=== PATIENT | female | born 1935 | race Hispanic/Latino ===

== ENCOUNTER 2017-07-26 10:08 | Day surgery (SDC) | payer MEDICARE ==
[2017-07-26 11:16] VITALS: BMI 24.2
[2017-07-26 11:21] LABS: INR 0.99 (0.93-1.08); PARTIAL THROMBOPLASTIN TIME 23.8 Seconds (23.7-30.8)
[2017-07-26 11:41] VITALS: RESP 18; O2SAT 95
[2017-07-26 13:15] VITALS: BP 169/85; PULSE 58; TEMP 98.5
--- NOTE | 2017-07-26 15:19 | US ---
PROCEDURE: Ultrasound guided right thoracentesis. CLINICAL HISTORY: Lymphoma. Recurrent right pleural effusion. Shortness of breath. Needs thoracentesis. PHYSICIAN(S): Diogo Pablo MD. TECHNIQUE: The relative risks and indications of the procedure were explained to the patient and her daughter and consent obtained. The patient was placed in a sitting position on the stretcher and sonography of the right chest performed. This revealed a moderate sized rightpleural effusion. A right posterolateral intercostal approach was selected and the area prepped and draped usual sterile fashion. 1% Xylocaine was used to anesthetize the skin and soft tissues. A 7 [place] thoracentesis catheter was trocared into the right pleural cavity and 2000 ccof clear straw-colored fluid aspirated. No labs were sent IMPRESSION: 1. Ultrasound guided right thoracentesis. 2000 cc of clear, straw-colored fluid were aspirated.
--- NOTE | 2017-07-26 17:21 | RAD ---
HISTORY: Right-sided thoracentesis COMPARISON: No prior. TECHNIQUE: Chest PA and lateral FINDINGS: LUNGS: Lung staley appear slightly overinflated consistent with the emphysema or COPD. . There appears to be a small right lateral basilar pneumothorax. . There appears to be small residual right-sided effusion and mild right basilar atelectasis. The the PLEURA: No significant pleural effusion identified. No pneumothorax apparent. CARDIOVASCULAR: Normal. OSSEOUS STRUCTURES: No significant abnormalities. VISUALIZED UPPER ABDOMEN: Normal. OTHER FINDINGS: None. IMPRESSION: There appears to be a small residual right lateral basilar pneumothorax. Small residual right-sided effusion felt be present. There may also be some mild right basilar atelectasis and or scarring changes. . Dr. Pablo aware of these findings
== END 2017-07-26 13:50 | disposition home or self-care (01) ==
LOC: OPSURG 10:08 → EDSEX 10:08 → OPSURG 13:50
PROVIDERS: ATTEND Radiology Vascular & Interventional Radiology
DX: J90 Pleural effusion, not elsewhere classified (principal); C85.90 Non-Hodgkin lymphoma, unspecified, unspecified site

== ENCOUNTER 2017-08-31 13:38 | Emergency (ER) | payer MEDICARE ==
[2017-08-31 13:41] VITALS: BMI 24.2
--- NOTE | 2017-08-31 14:28 | ED PDOC ---
Arrival/HPI - General Chief Complaint: Shortness Of Breath Time Seen by Provider: 08/31/17 13:52 Historian: Patient, Family - History of Present Illness Narrative History of Present Illness (Text): 08/31/17 14:25 82yo female with PMHx of hypertension, non Hodgkin lymphoma, pleural effusion, lumpectomy present with complaint of dyspnea on exertion. the daughter who was by the bedside states pain have history of fluid in her lung. Was here two weeks ago for same complaint and had thoracocentesis done. States she started having SOB yesterday with mild right foot swelling. Denies chest pain, fever, chills, cough, hemoptysis, nausea, vomiting, any other complaint. Past Medical History - Provider Review Nursing Documentation Reviewed: Yes - Infectious Disease Hx of Infectious Diseases: None - Reproductive Menopause: Yes - Cardiac Hx Hypertension: Yes - Pulmonary Hx Respiratory Disorders: No Other/Comment: hx- fluid in lungs - Neurological Hx Neurological Disorder: No - HEENT Hx HEENT Disorder: No - Renal Hx Renal Disorder: No - Endocrine/Metabolic Hx Endocrine Disorders: No - Hematological/Oncological Hx Blood Transfusions: No Other/Comment: non-hodgkin lymphoma - Integumentary Hx Dermatological Disorder: No - Musculoskeletal/Rheumatological Hx Musculoskeletal Disorders: No - Gastrointestinal Hx Gastrointestinal Disorders: No - Genitourinary/Gynecological Hx Genitourinary Disorders: No - Psychiatric Hx Psychophysiologic Disorder: No Hx Substance Use: No - Surgical History Hx Appendectomy: Yes Other/Comment: lumpectomy right breast, removal lymph node to neck - Anesthesia Hx Anesthesia Reactions: No Hx Malignant Hyperthermia: No Family/Social History - Physician Review Nursing Documentation Reviewed: Yes Family/Social History: Unknown Family HX Smoking Status: Never Smoked Hx Alcohol Use: No Hx Substance Use: No Allergies/Home Meds Allergies/Adverse Reactions: Allergies Penicillins Allergy (Verified 08/31/17 13:56) shaking Home Medications: Home Meds Medication Instructions Recorded Confirmed Ascorbic Acid [Vitamin C 500 mg 500 mg PO DAILY 07/26/17 08/31/17 Tab] Aspirin [Adult Low Dose Aspirin EC] 81 mg PO DAILY 07/26/17 08/31/17 Fluticasone/Vilanterol [Breo 1 inh INH DAILY 07/26/17 08/31/17 Ellipta 100-25 Mcg INH] Metoprolol Tartrate [Lopressor] 50 mg PO DAILY 07/26/17 08/31/17 [place]-3 Fatty Acids/Fish Oil [Fish 1 cap PO DAILY 07/26/17 08/31/17 Oil 1,000 mg Capsule] Rosuvastatin Calcium [Crestor] 5 mg PO DAILY 07/26/17 08/31/17 Zolpidem [Ambien] 5 mg PO HS 07/26/17 08/31/17 Thiamine [Vitamin B-1] 100 mg PO DAILY 08/31/17 08/31/17 Review of Systems - Physician Review All systems were reviewed & negative as marked: Yes - Review of Systems Constitutional: Normal Eyes: Normal ENT: Normal Respiratory: SOB. absent: Cough, Sputum, Wheezing Cardiovascular: Normal Gastrointestinal: Normal Genitourinary Female: Normal Musculoskeletal: Normal Skin: Normal Neurological: Normal Endocrine: Normal Hemo/Lymphatic: Normal Psychiatric: Normal Physical Exam Vital Signs Reviewed: Yes Vital Signs Temp Pulse Resp BP Pulse Ox 08/31/17 18:00 98.0 F 76 18 128/70 97 08/31/17 16:00 98.7 F 78 18 132/77 96 08/31/17 14:00 18 08/31/17 13:51 98.6 F 86 20 163/70 H 95 Temperature: Afebrile Blood Pressure: Normal Pulse: Regular Respiratory Rate: Normal Appearance: Positive for: Well-Appearing, Non-Toxic, Comfortable Pain Distress: None Mental Status: Positive for: Alert and Oriented X 3 - Systems Exam Head: Present: Atraumatic, Normocephalic Pupils: Present: PERRL Extroacular Muscles: Present: EOMI Conjunctiva: Present: Normal Mouth: Present: Moist Mucous Membranes Neck: Present: Normal Range of Motion Respiratory/Chest: Present: Clear to Auscultation, Good Air Exchange, Decreased Breath Sounds (Right base). No: Respiratory Distress, Accessory Muscle Use, Wheezes, Rales, Retracting, Rhonchi Cardiovascular: Present: Regular Rate and Rhythm, Normal S1, S2. No: Murmurs Abdomen: Present: Normal Bowel Sounds. No: Tenderness, Distention, Peritoneal Signs Back: Present: Normal Inspection Upper Extremity: Present: Normal Inspection. No: Cyanosis, Edema Lower Extremity: Present: Edema (1+ nonpitting RLE). No: CALF TENDERNESS Neurological: Present: GCS=15, CN II-XII Intact, Speech Normal Skin: Present: Warm, Dry, Normal Color. No: Rashes Psychiatric: Present: Alert, Oriented x 3, Normal Insight, Normal Concentration Medical Decision Making ED Course and Treatment: 08/31/17 20:26 PT presented for stated history. She was hemodynamically stable in ED. PO at RA was 95%. Lab was reviewed without leukocytosis CXR Right base infiltrate with large pleural effusion Case was CARMENCITA Armendariz who was covering for Dr. bonilla and he states he will do thoracentesis on Sunday. PT with the daughter by the bedside however declined admission. She insist on signing out AMA. the daughter states she lives next door to the hospital and will come back to the ED if her SOB worsening or for any new symptoms. I explained the risk of worsening symptoms, sepsis and even . The states they understand these risk, but still insist on signing out AMA. Case was also CARMENCITA mancilla Pt was started on Levaquin. - Lab Interpretations Lab Results: 08/31/17 14:00 08/31/17 14:00 Lab Results 08/31/17 14:00: Sodium 139, Potassium 4.3, Chloride 104, Carbon Dioxide 28, Anion Gap 11, BUN 16, Creatinine 1.0, Est GFR ( Amer) > 60, Est GFR (Non- Af Amer) 53, Random Glucose 103, Calcium 9.2, Total Bilirubin 0.4, AST 27, ALT 31, Alkaline Phosphatase 70, Lactate Dehydrogenase 650, Total Creatine Kinase 67 , Troponin I < 0.01, NT-Pro-B Natriuret Pep 991 H, Total Protein 6.8, Albumin 3.4, Globulin 3.4, Albumin/Globulin Ratio 1.0 L 08/31/17 14:00: PT 12.6 H, INR 1.15 H, APTT 26.7 08/31/17 14:00: WBC 4.1 L D, RBC 3.96, Hgb 11.7 L, Hct 35.6 L, MCV 89.9, MCH 29.5, MCHC 32.9, RDW 13.8, Plt Count 169, MPV 9.3, Gran % 62.0, Lymph % (Auto) 14.1 L, Wirt % (Auto) 14.4 H, Eos % (Auto) 8.5 H, Baso % (Auto) 1.0, Gran # 2.54 , Lymph # 0.6 L, Wirt # 0.6, Eos # 0.4, Baso # 0.04 - RAD Interpretation Radiology Orders: 08/31/17 14:16 CHEST PORTABLE [RAD] Stat - Medication Orders Current Medication Orders: Discontinued Medications Levofloxacin (Levaquin) 500 mg PO STAT STA Stop: 08/31/17 17:20 Last Admin: 08/31/17 17:53 Dose: 500 mg Disposition/Present on Arrival - Present on Arrival Any Indicators Present on Arrival: No History of DVT/PE: No History of Uncontrolled Diabetes: No Urinary Catheter: No History of Decub. Ulcer: No History Surgical Site Infection Following: None - Disposition Have Diagnosis and Disposition been Completed?: Yes Diagnosis: Pneumonia, Pleural effusion Disposition: AGAINST MEDICAL ADVICE Disposition Time: 17:40 Condition: FAIR Discharge Instructions (ExitCare): Pleural Effusion (ED), Pneumonia (ED) Additional Instructions: Return to ED immediately for worsening SOB otherwise Sunday morning Prescriptions: Levofloxacin [Levaquin] 500 mg PO DAILY #6 tablet Referrals: PCP,NO [Primary Care Provider] - Follow up with primary Forms: [employer] (Sl[place]ak)
--- NOTE | 2017-08-31 14:45 | RAD ---
HISTORY: SOB COMPARISON: 08/16/2017 FINDINGS: LUNGS: Right lower lobe infiltrate and effusion PLEURA: There is a large right pleural effusion CARDIOVASCULAR: Normal. OSSEOUS STRUCTURES: No significant abnormalities. VISUALIZED UPPER ABDOMEN: Normal. OTHER FINDINGS: None. IMPRESSION: Right lower lobe infiltrate and effusion
[2017-08-31 14:47] LABS: BASO # 0.04 K/mm3 (0.0-2.0); EOS # 0.4 (0.0-0.7); EOS % 8.5 % (1.5-5.0); GRAN # 2.54 (1.4-6.5); HEMATOCRIT 35.6 % (36.0-48.0); LYMPH # 0.6 (1.2-3.4); LYMPH % 14.1 % (22.0-35.0); MEAN CELL VOLUME 89.9 fl (80.0-105.0); MEAN CORPUSCULAR HEMOGLOBIN 29.5 pg (25.0-35.0); MEAN CORPUSCULAR HGB CONC 32.9 g/dl (31.0-37.0); MEAN PLATELET VOLUME 9.3 fl (7.0-11.0); MONO # 0.6 (0.1-0.6); MONO % 14.4 % (1.0-6.0); RED CELL DISTRIBUTION WIDTH 13.8 % (11.5-14.5); WHITE BLOOD COUNT 4.1 10^3/ul (4.5-11.0)
[2017-08-31 14:57] LABS: ALKALINE PHOSPHATASE 70 U/L (38-126); ALT/SGPT 31 U/L (7-56); AST/SGOT 27 U/L (14-36); BILIRUBIN,TOTAL 0.4 mg/dL (0.2-1.3); BLOOD UREA NITROGEN 16 mg/dL (7-21); CALCIUM 9.2 mg/dL (8.4-10.5); CARBON DIOXIDE 28 mmol/L (21-33); CHLORIDE 104 mmol/L (98-107); GFR AFRICAN-AMERICAN > 60; GLUCOSE,RANDOM 103 mg/dL (70-110); POTASSIUM 4.3 mmol/L (3.6-5.0); SODIUM 139 mmol/L (132-148); TOTAL PROTEIN 6.8 g/dL (5.8-8.3)
[2017-08-31 14:58] LABS: INR 1.15 (0.93-1.08); PARTIAL THROMBOPLASTIN TIME 26.7 Seconds (25.1-36.5)
[2017-08-31 15:28] LABS: TROPONIN I < 0.01 ng/mL
[2017-08-31] MEDS ORDERED: levoFLOXacin 500 MG TAB PO STA (17:19)
[2017-08-31 18:18] VITALS: RESP 18
[2017-08-31 18:20] VITALS: BP 128/70; PULSE 76; TEMP 98; O2SAT 97
--- NOTE | 2017-09-01 09:07 | CARD ---
APPROVED REPORT EKG Measurement Heart [id number] <Conclusion> Normal sinus rhythm NSSTW changes No change
== END 2017-08-31 18:20 | disposition left against medical advice (07) ==
LOC: ED 13:38
DX: J18.9 Pneumonia, unspecified organism (principal); J90 Pleural effusion, not elsewhere classified; I10 Essential (primary) hypertension; Z88.0 Allergy status to penicillin